=== PATIENT | female | born 1970 | race Caucasian/White ===

== ENCOUNTER 2018-01-14 09:00 | Outpatient (RCR) | payer BC, SELFPAY ==
--- NOTE | 2017-10-31 12:32 | HP.PTEVAL_ITS ---
Patient's Visit Information ALANIS LUCAS is a 47 year old F referred to Physical Therapy by Fredis Pandey with a diagnosis of RHEUMATOID ARTHRITIS WITHOUT RA FACTOR. Date of Evaluation: 10/31/17 Physical Therapist: Dg Hightower PT, - Visit Plan Frequency: 2x /Week Duration: 4 Weeks Plan: PRE'S QUADS/HAMS/HIP ,NUSTEP,CONDITIONING - Subjective Subjective: This 47 y/o female presents to physical therapy with rheumatoid arthritis since childhood. Patient was diagnosis with RA at 11 y/o's old. Patient current major c/o's is weakness in legs . Patient weakness is worse with stairs with one step at a time. Patient is unable to squat,kneeling, extended walking. Patient denies parathesia/tingling. Patient has fibromayalgia and c/o pain in knees.Patient pain affects sleeping. Weakness affects ablity to perform ADL'S ,housework tasks and quality of life.Patient has h/o anxiety and bipolar. SOCIAL: . VOCATION: retired disablity - Pain Bilateral Back Pain Intensity (Out of 10): 5 Pain Intensity Range: 10 - Objective POSTURE: mild foward posture,mild knee valgus ,pes planus has orthotics. GAIT: ambulates with reciprocal pattern. NEURO: inact ,denies parathesia/tingling,. PALAPTION: medial/lateral joint mild. AROM: hams min tight. MMT:quads 4-/5, hams 4/5,hip flexion 3+/5,ankle 4/5. PROPRIOCEPTION: impaired - Special Tests R Knee Valgus - MCL: Negative R Knee Varus - LCL: Negative R Knee Patellar Apprehension - PFS: Negative R Knee Patellar Grind - PFS: Negative L Knee Valgus - MCL: Negative L Knee Varus - LCL: Negative L Knee Patellar Apprehension - PFS: Negative L Knee Patellar Grind - PFS: Negative - Goals Goal 1:: Independant with HEP Goal Time Frame: 4-6 Weeks Goal 2:: Patient normalize gait pattern with min pain Goal Time Frame: 4-6 Weeks Goal 3:: Increase strength quads/hams/hip to 4/5 to improve function with ADL'S and stairs Goal Time Frame: 4-6 Weeks Goal 4:: Patient decrease pain knee by 50% or greater to improve function and walking/standing/stairs. Goal Time Frame: 4-6 Weeks Goal 5:: Patient be able to perform ADL'S and housework tasks ,stairs with min limiations Goal Time Frame: 4-6 Weeks - Rehabilitation Potential Physical Therapy Diagnosis: This patient has multiple comorbities along with RA with weakness ,pain in kness ,impairs ADL'S and housework tasks Rehabilitation Potential: Good - Anticipated Interventions Patient/Client Instruction: Educate patient on: Condition, Plan of Care For the Purpose of:: To decrease pain, To increase ROM, To improve muscle performance and motor function, To improve ability to perform ADL's, To increase tolerance to activity/condition/position, To improve ability of physical actions for home/community/work/leisure, To improve health of tissue, To decrease soft tissue restriction, To increase flexibility/ROM, To improve endurance, To improve ability to perform tasks related to life management Therapeutic Exercise to Include: Strength training, Endurance training, Flexibilty training, Active ROM Comment: PRE'S QUADS/HAMS/HIP For the Purpose of:: To decrease pain, To increase ROM, To improve muscle performance and motor function, To improve ability to perform ADL's, To increase tolerance to activity/condition/position, To improve ability of physical actions for home/community/work/leisure, To improve health of tissue, To decrease soft tissue restriction, To increase flexibility/ROM, To improve ability to perform tasks related to life management Thank you for the opportunity to evaluate your patient. For Medicare and Medicare HMO plans, please review the plan of care and approve it. It will need to be FAXED BACK to us at [phone] for Medicare purposes. Please let me know if there are questions or concerns regarding this plan of care. Physician Signature: Date:
--- NOTE | 2018-01-14 11:53 | HP.PTDCSUM ---
HP - PT D/C Summary It has been my pleasure to treat ALANIS LUCAS under orders from Fredis Pandey, for the diagnosis of RHEUMATOID ARTHRITIS WITHOUT RA FACTOR for a total of 6 visit(s). Discharge Date: 01/14/18 Please see the following information for a summary of their discharge status. - Subjective Subjective: Pt. reports being about 60% better overall. Pt. reports having increased pain the other night I think I over did it on the bike. Pt. reports being HEP compliant and has exercises for home, gym and aquatics. Pt. plans on being DC from PT at this point in time and trialing on own until following up with doctor about her back. - Pain Bilateral Back Pain Intensity (Out of 10): 4 bILATERAL KNEES Pain Intensity (Out of 10): 4 - Overall Improvement % Improvement: 60 - Objective Objective/Function: ROM- pt. has ROM with in normal limits of B knees. Pt. does have crepitus at ~30deg of knee flex/ext bilaterally. MMT- RLE- ankle 5/5 throughout; knee- ext 4+/5, flexion 4+/5; hip- flexion- 4+/5, abd 4/5, ext 4/5. LLE- ankle 5/5 throughout; knee- ext 4+/5, flexino 4/5; hip- flexion 4/5, abd 4/5, ext 4/5. gait: Pt. has increased genu varum in stance and gait. Pt. has decreased step length bilaterally and increased lateral hip sway during stance phase of gait. STAIRS: Pt. is able to negotiate with reciprocal pattern, but heavily uses HR to complete. Increased knee pain with doing so. - Goals Goal 1:: Independant with HEP (difficulty with balance exercises). Goal Progress: Goal Met Goal 2:: Patient normalize gait pattern with min pain Goal Progress: Progressing Goal 3:: Increase strength quads/hams/hip to 4/5 to improve function with ADL'S and stairs Goal Progress: Goal Met Goal 4:: Patient decrease pain knee by 50% or greater to improve function and walking/standing/stairs. Goal Progress: Progressing Goal 5:: Patient be able to perform ADL'S and housework tasks ,stairs with min limiations Goal Progress: Progressing - Plan Plan: PT. to be DC to HEP at this point in time and follow up with physician in 1 month to determine how to progress goind forward. - D/C Information Discharge Comments: Pt. was treated with BLE strengthening, particularlly her glute med, quads and HS. Pt. was given exercises to complete at home and in gym to assist with stabilizing her knees with functional mobility. She was also given some aquatic exercises as she plans on trialling this as well. Pt. will be DC to HEP at this point in time. If there are questions or concerns regarding this patient's physical therapy, please feel free to call me at [phone]. Thank you for the referral of this patient. Sincerely, Neeraj Caban
== END 2018-01-14 19:00 | disposition home or self-care (01) ==
LOC: PT 09:00
PROVIDERS: Family Provider Internal Medicine; PCP Internal Medicine; Visit Provider Internal Medicine Rheumatology
DX: M06.09 Rheumatoid arthritis without rheumatoid factor, multiple sites (principal)
CPT/HCPCS: 97110; 97162; 97530

== ENCOUNTER → 2019-06-19 12:28 | Outpatient (CLI) | payer BC, SELFPAY ==
--- NOTE | 2019-06-19 12:40 | BI_ITS ---
MAMMOGRAPHY - BILATERAL SCREENING REASON FOR EXAM: Female, 49 years old. Routine annual screening examination. PERTINENT HISTORY: Grandmother with breast cancer. TECHNIQUE: Digital bilateral breast shayna (3D mammographic acquisition) in the CC and MLO projections. 2-D mediolateral oblique (MLO) and craniocaudad (CC) views of both breasts were obtained. CAD: Full Field Digital Mammography with Computer Added Detection was performed. COMPARISON: Comparison is made with prior study dated January 14, 2018 and June 13, 2016. FINDINGS: Breast Composition: The breasts are heterogeneously dense, which may obscure small masses. There are no dominant masses or suspicious calcifications. No other significant abnormalities are identified. There has been no significant change since the prior study. BI/SCREEN MAMM (CAD) W/SHAYNA BILAT IMPRESSION: Stable bilateral screening mammogram. Yearly follow-up mammogram recommended. (A) ASSESSMENT CATEGORY: BIRADS Category 1: Negative. A letter regarding these results will be sent to the patient by the facility within 30 days. Approximately 10% of breast cancers are not detected by mammography. A normal mammogram should not delay biopsy of a clinically suspicious abnormality. [id number] Electronically Signed: Pascual Vaughn, at 14:31 EST , Service support ,
== END ==
PROVIDERS: Family Provider Internal Medicine; PCP Internal Medicine; Referring Provider Obstetrics & Gynecology Gynecology; Visit Provider Obstetrics & Gynecology Gynecology
DX: Z12.31 Encounter for screening mammogram for malignant neoplasm of breast (principal)
CPT/HCPCS: 77063; 77067

== ENCOUNTER 2020-03-18 08:24 | Outpatient (RCR) | payer SELFPAY ==
--- NOTE | 2020-03-25 11:21 | HP.FCE ---
Floor (Occasional 1-33% of Day): 15# Floor (Frequent 34-66% of Day): 8# Floor (Constant 67-100% of Day): NA Floor PDL: Sedentary-Light Knee (Occasional 1-33% of Day): 15# Knee (Frequent 34-66% of Day): 8# Knee (Constant 67-100% of Day): NA Knee PDL: Sedentary-Light Waist (Occasional 1-33% of Day): 15# Waist (Frequent 34-66% of Day): 8# Waist (Constant 67-100% of Day): NA Waist PDL: Sedentary-Light Shoulder (Occasional 1-33% of Day): 15# Shoulder (Frequent 34-66% of Day): 8# Shoulder (Constant 67-100% of Day): NA Shoulder PDL: Sedentary-Light Overhead (Occasional 1-33% of Day): NA Overhead (Frequent 34-66% of Day): NA Overhead (Constant 67-100% of Day): NA Overhead PDL: No Ability Comments: poor lifting mechanics with lift tasks from all levels Bending: Occasional Ability (1-33% of day) Comments: with use of external support Squatting: Occasional Ability (1-33% of day) Comments: low occasional ability with external support Kneeling: No Ablility (0% of day) Reaching out: Occasional Ability (1-33% of day) Reaching up: Occasional Ability (1-33% of day) Comments: low occasional ability Sitting: Frequent Ability (34-66% of day) Walking: Occasional Ability (1-33% of day) Standing: Occasional Ability (1-33% of day) Comments: low occasional ability Duration Sedentary Sedentary Light Light Light Medium Medium Medium Heavy Very Heavy Heavy Occasional (0-33% of day) Frequent (34-66% of day) Constant (67-100% of day) 10 # Negligible Negligible 15 # 8 # Negligible 20 # 10# Negli. 35 # 18 # 7 # 50 # 25 # 10 # 75 # 100 # >100 # 38 # 50 # >50 # 15 # 20 # >20 # Height: 1.68 m Weight:: 90.718 kg Hand Dominance: right Medical History Including Restrictions: pt states she feels more joints have become active with RA- pt has right hip and pain radiates through to her back and pelvis area. pt states bilateral ankles and knees cause pain. pt has pain in wrist/hand. Pt states she does see counseling one time a month to help with her depression and anxiety. pt states she has been through physical therapy in the past for knee pain and hip pain, with some relieve in pain. pt states she will be seeing physical therapy for her right shoulder and right hip in the future. pt sates her sleep is interrupted with pain. pt does not exercise on a regular basis. pt states she has no restrictions. metatraxaite. naproxin. Sulfasalazine. folic acid. limital. wellbutrin. cymbalta. lisinopril. hydrochlorothiazida. inhaler. gabapentin. clozapine Diagnoses: Major depressive disorder dx at age 23. Bipolar II disorder dx at age 28. Generalized anxiety disorder dx at age 28. RA w/o Rheu factor multiple sites Dx at age 12. Asthma. High blood pressure. wears glasses Symptoms: Pain in right hip. Pain in bialteral ankles. Pain in bilateral knees. pain in bilateral wrist. pain in hands. pain in right shoulder. pain in her neck. pain in her jaw Pain: Pt reports pain currently is 7/10 without taking her medication. Work History: Pt states she last worked in 2017. pt worked for the [employer]. 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 Pt states she was employed there for a little over 5 years. pt states she was no longer able to perform her job duties. 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 Behavioral: Pt demonstrate good cooperation and effort throughout the assessment. ADLS: Pt states she lives in a ranch with a basement. States there are two entry steps with one rail. lives with and stepson. Pt has a walk-in shower. pt states she is ind. with bathing and dressing. Pt states her does the cooking and cleaning. laundry is located on the first floor and pt states she can perform light laundry tasks. pt states her does the grocery shopping. Pt states her does work outside the home. Pt states she can do light cooking, no large meals. Pt states she drives ind. Physical Examination: pt demo with a standing posture of hip internal rotation knees close together and ankles inverted. shoulders rolled forward and neck forward ROM: pt demo with a standing posture of hip internal rotation knees close together and ankles inverted. shoulders rolled forward and neck forward. pt demo ROM WFL grossly throughout Strength: pt demo with bilateral shoulder MMT at 4-/5. biceps/triceps at 4/5. bilateral hip flex at 4-/5. hamstrings and quad 4+/5 Right Vice President Client Services Strength Average: 8.33 Right [employer] Strength Percentile: <.2% Left [employer] Strength Average: 10.00 Left [employer] Strength Percentile: <.2% Right Lateral Pinch Average: 6.00 Right Lateral Pinch Percentile: <10% Left Lateral Pinch Average: 4.00 Left Lateral Pinch Percentile: <10% Right Tripod Pinch Average: 4.00 Right Tripod Pinch Percentile: <10% Left Tripod Pinch Average: 4.00 Left Tripod Pinch Percentile: <10% Comments: pt demonstrates with weak assistant passenger locomotive engineer and pinch Sensation: sennes-lizzeth. monofilament testing. righ/left 2.83. bilateral hand sensation is within normal limits Fine Motor: Nine hole peg test. right 21.13 sec. = 25% limited. left 23.45 sec. = 50% average ability Balance: no loss of balance noted during assessment Bending: pt demo the ability to bend forward three times, ten times pt reports hip pain 7/10 and heart rate increase from 58 to 98. pt required external support while performing this task. pt can bend forward on an occasional ability Squatting: pt demo the ability to squat three times with limited ROM and reported bilateral knee pain 8/10. Pt demo a need for external support while performing this activity. pt can squat on a low occasional ability Kneeling: Crouching and kneeling. NA Reaching out/up: pt demo the ability to reach out/up three times and ten times pt demo the ability to reach out ten times rapidly unable to reach up ten times rapidly. pt reports right shoulder pain increased from 0/10 to 5/10 heart rate increased from 56 to 98. pt can reach out on a occasional ability and reach up on low occasional ability Walking: pt demo an antalgic knee knocking ambulation for 4 min. pt SOB heart rate increased from 58 to 99 pt reported right hip pain 8/10 left knee 8/10 Standing: pt demo the ability to stand for 2 min with shifting body weigth - pt can stand on a an low occasional ability Sitting: pt demo the ability to sit for 40 min with no apparent or expressed discomfort pt can sit on a frequent ability Climbing Stairs: pt demo the ability to ascend/desced 10 steps with use of one rail on right ascending and both hand rails with descending Floor Lift: pt demo the ability to lift 15# maximally from this level - poor lifting mechanics Knee Lift: pt demo the ability to lift 15# maximally from this level - poor lifting mechanics Waist Lift: pt demo the ability to lift 15# maximally from this level - poor lifting mechanics Shoulder Lift: pt demo the ability to lift 15# maximally from this level -poor lifting mechanics Overhead Lift: NA Carryin# for 8 feet pt did hold weight against her body Comments: pusing 15# at table top level for 12 with increase pain. Pt limited with pain and weakness to perform functional tasks
--- NOTE | 2020-03-25 11:21 | HP.OT.NRP ---
ALANIS LUCAS was seen in my office for initial evaluation on . The following Plan of Care was established for this patient: Plan: pt seen for FCE only This patient was last seen in our office . Pertinent comments regarding their Occupational therapy will appear below: At this point I will be discontinuing this patient from occupational therapy. I would be happy to see this patient again in the future if found appropriate by the physician. Thank you! Norma Chicas, OTR/L, CHT
== END 2020-03-18 19:00 | disposition home or self-care (01) ==
LOC: OT 08:24
PROVIDERS: PCP Internal Medicine; Referring Provider Internal Medicine Rheumatology; Visit Provider Internal Medicine Rheumatology
DX: M08.00 Unspecified juvenile rheumatoid arthritis of unspecified site (principal); M06.9 Rheumatoid arthritis, unspecified
CPT/HCPCS: 97750

== ENCOUNTER → 2020-05-27 11:25 | Outpatient (CLI) | payer BC, SELFPAY | PROVIDERS: PCP Internal Medicine; Referring Provider Internal Medicine Pulmonary Disease; Visit Provider Internal Medicine Pulmonary Disease | DX: Z20.828 Contact with and (suspected) exposure to other viral communicable diseases (principal); R05 Cough | CPT/HCPCS: 87635; C9803; U0003 ==

== ENCOUNTER → 2020-06-21 07:19 | Outpatient (CLI) | payer BC, SELFPAY ==
--- NOTE | 2020-06-21 07:21 | BI_ITS ---
MAMMOGRAPHY - BILATERAL SCREENING REASON FOR EXAM: Female, 50 years old. Routine annual screening examination. PERTINENT HISTORY: Grandmother with breast cancer. Remote left excisional breast biopsy. TECHNIQUE: Digital bilateral breast shayna (3D mammographic acquisition) in the CC and MLO projections. 2-D mediolateral oblique (MLO) and craniocaudad (CC) views of both breasts were obtained. CAD: Full Field Digital Mammography with Computer Added Detection was performed. COMPARISON: Comparison is made with prior study dated 06/19/2019 and 07/17/2017. FINDINGS: Breast Composition: The breasts are heterogeneously dense, which may obscure small masses. There are no dominant masses or suspicious calcifications. No other significant abnormalities are identified. There has been no significant change since the prior study. BI/SCREEN MAMM (CAD) W/SHAYNA BILAT IMPRESSION: Stable bilateral screening mammogram. Yearly follow-up mammogram recommended. (A) ASSESSMENT CATEGORY: BIRADS Category 1: Negative. A letter regarding these results will be sent to the patient by the facility within 30 days. Approximately 10% of breast cancers are not detected by mammography. A normal mammogram should not delay biopsy of a clinically suspicious abnormality. [id number] Electronically Signed: Pascual Vaughn, at 8:27 EST , Service support ,
== END ==
PROVIDERS: PCP Internal Medicine; Referring Provider Obstetrics & Gynecology Gynecology; Visit Provider Obstetrics & Gynecology Gynecology
DX: Z12.31 Encounter for screening mammogram for malignant neoplasm of breast (principal)
CPT/HCPCS: 77063; 77067

== ENCOUNTER 2020-08-26 08:00 | Outpatient (RCR) | payer BC, SELFPAY ==
--- NOTE | 2020-05-10 13:17 | HP.PTEVAL ---
Patient's Visit Information ALANIS LUCAS is a 50 year old F referred to Physical Therapy by Dr. Fredis Pandey DO with a diagnosis of RIGHT HIP AND SHOULDER PAIN. Date of Evaluation: 05/09/20 Physical Therapist: Charline Cruz PT, Cert MDT - Visit Plan Frequency: 2-3x /Week Duration: 2 Months Plan: AQUATIC THERAPY FOR RIGHT SHLD AND RIGHT HIP PAIN REDUCTION, POSTURE CORRECTION/STRENGTHENING, INSTRUCTION IN APPROPRIATE BODY MECHANICS AND ACTIVITY MODIFICATIONS. DLS STARTING WITH A NEUTRAL SPINE PROGRESSING ROM TOLERATED. THANG UE AND LE ROM, STRETCHING AND STRENGTHENING. HEP INSTRUCTION. - Subjective Present symptoms: RIGHT HIP AND RIGHT SHOULDER PAIN. ALSO HAS MULTIPLE OTHER JOINT PAIN INCLUDING SPINE PAIN. PATIENT DENIES THANG UE AND LE NUMBNESS AND TINGLING. Present since: RIGHT HIP - ABOUT A YEAR AGO. RIGHT SHLD - ABOUT 6 MONTHS AGO. Pain Scale: RIGHT SHLD: Worst - 7/10 Least - 3/10, RIGHT HIP: WORST - 8/10, LEAST 4/10. Commenced as a result of: NO APPARENT REASON. Symptoms at onset: LOW BACK. Worse: REACHING, PUSHING, SLEEPING ON RIGHT SIDE, ROLLING OVER IN BED, WALKING, RISING FROM SITTING, GETTING IN/OUT OF CAR, SIDE STEPPING, TWISTING IN BED, RISING FROM LYING. SITTING WITHOUT BACK SUPPORT AND LEGS DANGLING. Better: RESTING ARM, CHANGE OF POSITION OF ARM, CHANGE OF POSITION FOR HIP, SOMETIMES WALKING A FEW STEPS, LYING DOWN. Previous history/Previous treatment: PATIENT REPORTS SHE CAME TO PT HERE FOR HER LOW BACK ABOUT A YEAR AGO BUT THE PT THOUGHT IT WAS HER HIP. Dizziness: NO. Tinnitis: NO. Nausea: NO. Shortness of Breath: NO. Difficulty Swollowing: NO. Coughing/sneezing/straining: NEGATIVE. Gait: INDEP BUT ANTALGIC. Difficulty initiating urinatin: NO. Gait: NO AD'S. Unexplained weight loss: NO. Imaging: NONE RECENT OF RIGHT SHLD OR HIP. DID HAVE NECK X-RAY RECENTLY AND THERE ARE SOME BONE SPURS AND NARROWING. History from recent FCE here at [facility]: pt states she feels more joints have become active with RA- pt has right hip and pain radiates through to her back and pelvis area. pt states bilateral ankles and knees cause pain. pt has pain in wrist/hand. Pt states she does see counseling one time a month to help with her depression and anxiety. pt states she has been through physical therapy in the past for knee pain and hip pain, with some relieve in pain. pt states she will be seeing physical therapy for her right shoulder and right hip in the future. pt sates her sleep is interrupted with pain. pt does not exercise on a regular basis. pt states she has no restrictions. Medications: metatraxaite. naproxin. Sulfasalazine. folic acid. limital. wellbutrin. cymbalta. lisinopril. hydrochlorothiazida. inhaler. gabapentin. clozapine. PMH: Major depressive disorder dx at age 23. Bipolar II disorder dx at age 28. Generalized anxiety disorder dx at age 28. RA w/o Rheu factor multiple sites Dx at age 12. Asthma. High blood pressure. Fibromyalgia. wears glasses. Symptoms reported at E: Pain in right hip. Pain in bialteral ankles. Pain in bilateral knees. pain in bilateral wrist. pain in hands. pain in right shoulder. pain in her neck. pain in her jaw. Employment History: Pt states she last worked in 2017. pt worked for the [employer]. 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 Pt states she was employed there for a little over 5 years. pt states she was no longer able to perform her job duties. 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 ADL's: Pt states she lives in a ranch with a basement. States there are two entry steps with one rail. lives with and stepson. Pt has a walk-in shower. pt states she is ind. with bathing and dressing. Pt states her does the cooking and cleaning. laundry is located on the first floor and pt states she can perform light laundry tasks. pt states her does the grocery shopping. Pt states her does work outside the home. Pt states she can do light cooking, no large meals. Pt states she drives ind. - Objective Sitting Posture/Standing Posture: FORWARD HEAD. ROUNDED SHOULDERS. NO TORTICOLLIS. INCREASED KYPHOSIS. THANG GENU VALGUS. Active Correction of posture: NE. Other Observations: INDEP ANTALGIC GAIT AND TRANSFERS. Motor deficit: THANG UE'S AND LE'S GROSSLY 4/5 WITH MMT'ING. Sensory deficit: THANG UE AND LE LIGHT TOUCH SENSATION APPEARS INTACT AND SYMMETRIAL. FEET NT. ROM deficit: THANG UE'S AND LE'S WFL. Reflexes: NT. Dural Signs: UE'S -NEGATIVE , LE'S - NEGATIVE. Lumbar mvmt loss: flex - MIN. ext - MOD - INCREASES LBP. R SG - MOD - INCRASES LBP. L SG - MOD - INCREASES LBP. PALPATION: VERY TIGHT THANG CERVICAL MUSCULATURE AND TENDERNESS OF CERVICAL SPINE REGIONS. Core strength: POOR. Cervical Mvmt Loss: Flex: NIL. Pro: NIL. Ext: MOD TO RENO. Ret: RENO. RSB: MOD. LSB: MOD - BRIEF RIGHT EAR RINGING. R Rot: MOD TO RENO. L Rot: MOD TO RENO. PATIENT C/O INCREASED NECK PAIN WITH CERVICAL ROM TESTING ALL PLANES. Postural strength: POOR - Goals Goal 1:: DECREASE C/O RIGHT SHOULDER AND HIP PAIN Goal Time Frame: 4-6 Weeks Goal 2:: IMPROVE REACHING, PUSHING, SLEEPING ON RIGHT SIDE, ROLLING OVER IN BED, WALKING, RISING FROM SITTING, GETTING IN/OUT OF CAR, SIDE STEPPING AND RISING FROM LYING FUNCTION Goal Time Frame: 4-6 Weeks Goal 3:: PATIENT WILL BE INDEP WITH A LAND AND/OR WATER EX PROGRAMS FOR CONTINUED IMPROVEMENT ONCE FORMAL PHYSICAL THERPAY CONCLUDES. - Anticipated Interventions Patient/Client Instruction: Educate patient on: Condition, Plan of Care, Risk Factors, Benefits of Fitness Program For the Purpose of:: To improve self management Therapeutic Exercise to Include: Strength training, Body mechanics, Postural training, Flexibilty training, Gait and locomotor training, Neuromotor development, In an aquatic setting, Dynamic Lumbar Stabilization, Scapular Strength/Stabilization For the Purpose of:: To decrease pain, To increase ROM, To improve muscle performance and motor function, To increase tolerance to activity/condition/position, To improve ability of physical actions for home/community/work/leisure, To improve gait and locomotor functions Thank you for the opportunity to evaluate your patient. For Medicare and Medicare HMO plans, please review the plan of care and approve it. It will need to be FAXED BACK to us at [phone] for Medicare purposes. For Medicare only, by signing this I certify the plan of care. Please let me know if there are questions or concerns regarding this plan of care. Physician Signature: Date:
--- NOTE | 2020-06-30 12:35 | HP.PTREVAL ---
Dr. Fredis Pandey, DO, It has been my pleasure to treat ALANIS LUCAS over the last 9 visits for RIGHT HIP AND SHOULDER PAIN. Please see the progress note below for an update on the physical therapy plan of care! Subjective: PATIENT REPORTS THAT WHEN SHE WALKS WRONG IT HURTS MORE. LEARNING TO WALK RIGHT HAS HELPED. PATIENT REPORTS HER HIP HAS IMPROVED WITH WALKING. MY R SHLD HAS IMPROVED IN TERMS OF NOT FEELING LIKE IT IS GOING TO DISLOCATE MUCH. THE GROIN PAIN HAS IMPROVED NOW TOO AND COMES AND GOES. PATIENT REPORTS EVERYTHING HAS IMPROVED BUT ITS NOT GREAT YET. INCRASED PAIN WITH LUNGES YESTERDAY. Objective/Function: PATIENT WAS SEEN TODAY FOR RE-ASSESSMENT OF PROGRESS TOWARD THE SET PT GOALS AND THE NEED FOR FURTHER PHYSICAL THERAPY VS READINESS FOR DISCHARGE. PATIENT IS A GOOD CANDIDATE TO CONTINUE AQUATIC THERAPY BASED ON PROGRESS MADE AND ROOM FOR FURTHER IMPROVEMENT. PATIENT IS AGREEABLE. UPON EXAM TODAY: THANG UE AND LE STRENGTH GROSSLY 4/5 WITH MMT'ING. POOR CORE STRENGTH. Lumbar mvmt loss: flex - MIN. ext - MOD - INCREASES LBP. R SG - MIN - INCRASES LBP. L SG - MIN - INCREASES LBP. Core strength: POOR. Cervical Mvmt Loss: Flex: NIL. Pro: NIL. Ext: MOD TO RENO. Ret: RENO. RSB: MOD. LSB: MOD - BRIEF RIGHT EAR RINGING. R Rot: MOD TO RENO. L Rot: MOD TO RENO. PATIENT C/O INCREASED NECK PAIN WITH CERVICAL ROM TESTING ALL PLANES. Postural strength: POOR Plan Plan: RECOMMEND CONTINUED AQUATIC THERPAY 2X'S A WEEK X 5 WEEKS WORKING TOWARD SAME GOALS. PATIENT AGREEABLE. Goals Goal 1:: DECREASE C/O RIGHT SHOULDER AND HIP PAIN Goal Time Frame: 4-6 Weeks Goal Progress: Progressing Goal 2:: IMPROVE REACHING, PUSHING, SLEEPING ON RIGHT SIDE, ROLLING OVER IN BED, WALKING, RISING FROM SITTING, GETTING IN/OUT OF CAR, SIDE STEPPING AND RISING FROM LYING FUNCTION Goal Time Frame: 4-6 Weeks Goal Progress: Progressing Goal 3:: PATIENT WILL BE INDEP WITH A LAND AND/OR WATER EX PROGRAMS FOR CONTINUED IMPROVEMENT ONCE FORMAL PHYSICAL THERPAY CONCLUDES. Goal Time Frame: 4-6 Weeks Goal Progress: Progressing Anticipated Interventions Patient/Client Instruction: Educate patient on: Condition, Plan of Care, Risk Factors, Benefits of Fitness Program For the Purpose of:: To improve self management Therapeutic Exercise to Include: Strength training, Body mechanics, Postural training, Flexibilty training, Gait and locomotor training, Neuromotor development, In an aquatic setting, Dynamic Lumbar Stabilization, Scapular Strength/Stabilization For the Purpose of:: To decrease pain, To increase ROM, To improve muscle performance and motor function, To increase tolerance to activity/condition/position, To improve ability of physical actions for home/community/work/leisure, To improve gait and locomotor functions Please do not hesitate to contact me at [phone] by phone or if you have questions or concerns regarding this new plan of care! Sincerely, Charline Cruz, PT, Cert MDT
--- NOTE | 2020-08-26 11:43 | HP.PTDCSUM ---
It has been my pleasure to treat ALANIS LUCAS referred by Dr. Fredis Pandey DO, with the diagnosis of RIGHT HIP AND SHOULDER PAIN for a total of 16 visit(s). Discharge Date: Please see the following information for a summary of their discharge status. Subjective: PATIENT REPORTS APPROX 60% IMPROVEMENT OVER-ALL TOWARD HER PT GOALS SINCE STARTING THERAPY. SHE REPORTS SHE PLANS TO JOIN OUR [employer] MEMBERSHIP TO CONTINUE INDEP WATER EX. HER RIGHT KNEE IS STILL SORE SINCE SLIPPING ON THE ICE. THIS PT RECOMMENDS PHYSICIAN ASSESSMENT OF KNEE AND PATIENT AGREEABLE. Lumbar Spine Pain Intensity (Out of 10): 6 RLE Pain Intensity (Out of 10): 3 RUE Pain Intensity (Out of 10): 5 % Improvement: 60 Objective/Function: PATIENT WAS SEEN TODAY FOR RE-ASSESSMENT OF PROGRESS TOWARD THE SET PT GOALS AND THE NEED FOR FURTHER PHYSICAL THERAPY VS READINESS FOR DISCHARGE. PATIENT IS A GOOD CANDIDATE TO CONTINUE AQUATIC THERAPY INDEP'LY AT THIS POINT BASED ON PROGRESS MADE AND LEVEL OF CHALLENGE PROVIDED BY CURRENT PROGRAM. PATIENT IS AGREEABLE. UPON EXAM TODAY: THANG UE AND LE STRENGTH GROSSLY 4/5 WITH MMT'ING. POOR CORE STRENGTH. Lumbar mvmt loss: flex - MIN. ext - MOD - INCREASES LBP. R SG - MOD - INCRASES LBP. L SG - MIN - INCREASES LBP. Cervical Mvmt Loss: Flex: NIL. Pro: NIL. Ext: MOD TO RENO. Ret: RENO. RSB: MOD. LSB: MOD - STILL GETS BRIEF RIGHT EAR RINGING. R Rot: MOD TO RENO. L Rot: MOD TO RENO. PATIENT C/O INCREASED NECK PAIN WITH CERVICAL ROM TESTING ALL PLANES. Postural strength: POOR. ALSO DISCUSSED LEG LENGTH DISCREPENCY WITH PATIENT AND SHE HAS HAD A SHOE LIFT IN THE PAST THAT INCRASED HER PAIN. RECOMMENDED PODIATRY OR ORTHO FOLLOW UP FOR MORE DETAILED ASSESSMENT. Goal 1:: DECREASE C/O RIGHT SHOULDER AND HIP PAIN Goal Progress: Progressing Goal 2:: IMPROVE REACHING, PUSHING, SLEEPING ON RIGHT SIDE, ROLLING OVER IN BED, WALKING, RISING FROM SITTING, GETTING IN/OUT OF CAR, SIDE STEPPING AND RISING FROM LYING FUNCTION Goal Progress: Progressing Goal 3:: PATIENT WILL BE INDEP WITH A LAND AND/OR WATER EX PROGRAMS FOR CONTINUED IMPROVEMENT ONCE FORMAL PHYSICAL THERPAY CONCLUDES. Goal Progress: Progressing Plan: D/C TO INDEP POOL PROGRAM AND FOLLOW UP WITH PHYSICIANS NEEDED FOR R SHLD AND HIP PAIN THAT SHE WAS REFERRED TO PT FOR IN ADDITION TO RIGHT KNEE NEEDED. If there are questions or concerns regarding this patient's physical therapy, please feel free to call me at [phone]. Thank you for the referral of this patient. Sincerely, Charline Cruz, PT, Cert MDT
--- NOTE | 2020-08-26 11:46 | HP.PTDCSUM_ITS ---
It has been my pleasure to treat ALANIS LUCAS referred by Dr. Fredis Pandey DO, with the diagnosis of RIGHT HIP AND SHOULDER PAIN for a total of 16 visit(s). Discharge Date: Please see the following information for a summary of their discharge status. Subjective: PATIENT REPORTS APPROX 60% IMPROVEMENT OVER-ALL TOWARD HER PT GOALS SINCE STARTING THERAPY. SHE REPORTS SHE PLANS TO JOIN OUR [employer] MEMBERSHIP TO CONTINUE INDEP WATER EX. HER RIGHT KNEE IS STILL SORE SINCE SLIPPING ON THE ICE. THIS PT RECOMMENDS PHYSICIAN ASSESSMENT OF KNEE AND PATIENT AGREEABLE. Lumbar Spine Pain Intensity (Out of 10): 6 RLE Pain Intensity (Out of 10): 3 RUE Pain Intensity (Out of 10): 5 % Improvement: 60 Objective/Function: PATIENT WAS SEEN TODAY FOR RE-ASSESSMENT OF PROGRESS TOWARD THE SET PT GOALS AND THE NEED FOR FURTHER PHYSICAL THERAPY VS READINESS FOR DISCHARGE. PATIENT IS A GOOD CANDIDATE TO CONTINUE AQUATIC THERAPY INDEP'LY AT THIS POINT BASED ON PROGRESS MADE AND LEVEL OF CHALLENGE PROVIDED BY CURRENT PROGRAM. PATIENT IS AGREEABLE. UPON EXAM TODAY: THANG UE AND LE STRENGTH GROSSLY 4/5 WITH MMT'ING. POOR CORE STRENGTH. Lumbar mvmt loss: flex - MIN. ext - MOD - INCREASES LBP. R SG - MOD - INCRASES LBP. L SG - MIN - INCREASES LBP. Cervical Mvmt Loss: Flex: NIL. Pro: NIL. Ext: MOD TO RENO. Ret: RENO. RSB: MOD. LSB: MOD - STILL GETS BRIEF RIGHT EAR RINGING. R Rot: MOD TO RENO. L Rot: MOD TO RENO. PATIENT C/O INCREASED NECK PAIN WITH CERVICAL ROM TESTING ALL PLANES. Postural strength: POOR. ALSO DISCUSSED LEG LENGTH DISCREPENCY WITH PATIENT AND SHE HAS HAD A SHOE LIFT IN THE PAST THAT INCRASED HER PAIN. RECOMMENDED PODIATRY OR ORTHO FOLLOW UP FOR MORE DETAILED ASSESSMENT. PATIENT PRESENTS WITH MODERATE RIGHT KNEE SWELLING AND PAIN TODAY. RIGHT KNEE ROM IN SUPINE = -3 DEG EXT TO 120 DEG FLEX. Goal 1:: DECREASE C/O RIGHT SHOULDER AND HIP PAIN Goal Progress: Progressing Goal 2:: IMPROVE REACHING, PUSHING, SLEEPING ON RIGHT SIDE, ROLLING OVER IN BED, WALKING, RISING FROM SITTING, GETTING IN/OUT OF CAR, SIDE STEPPING AND RISING FROM LYING FUNCTION Goal Progress: Progressing Goal 3:: PATIENT WILL BE INDEP WITH A LAND AND/OR WATER EX PROGRAMS FOR CONTINUED IMPROVEMENT ONCE FORMAL PHYSICAL THERPAY CONCLUDES. Goal Progress: Progressing Plan: D/C TO INDEP POOL PROGRAM AND FOLLOW UP WITH PHYSICIANS NEEDED FOR R SHLD AND HIP PAIN THAT SHE WAS REFERRED TO PT FOR IN ADDITION TO RIGHT KNEE NEEDED. If there are questions or concerns regarding this patient's physical therapy, please feel free to call me at [phone]. Thank you for the referral of this patient. Sincerely, Charline Cruz, PT, Cert MDT
== END 2020-08-26 12:25 | disposition home or self-care (01) ==
LOC: PT 08:00
PROVIDERS: PCP Internal Medicine; Referring Provider Internal Medicine Rheumatology; Visit Provider Internal Medicine Rheumatology
DX: M25.551 Pain in right hip (principal); M75.101 Unspecified rotator cuff tear or rupture of right shoulder, not specified as traumatic
CPT/HCPCS: 97113; 97162; 97164

== ENCOUNTER 2021-02-07 10:00 | Outpatient (RCR) | payer BC, SELFPAY ==
--- NOTE | 2021-01-18 14:48 | HP.PTEVAL ---
Patient's Visit Information ALANIS LUCAS is a 50 year old F referred to Physical Therapy by Dr. Ximena Israel DPM with a diagnosis of ANKLE SPRAIN, SINUS TARSITIS, RA AND FIBRO. Date of Evaluation: 01/18/21 Physical Therapist: Charline Cruz, PT, Cert MDT - Visit Plan Frequency: 2-3x /Week Duration: 4-6 Weeks Plan: Start very slowly with aquatic therapy in deep water and progressing to land pt as tolerated for pain relief,. Joint mobilisation exercises as needed. R LE ROM, stretching and strengthening ex's. Balance Training and proprioceptive training. Bio-mechanical correction. HEP inst. - Subjective Work/Leisure: RETIRED. Present symptoms: PAIN IN THE WHOLE ANKLE. Present since: OCTOBER 2021. Pain Scale: WORST 6/10, LEAST 2/10. Currently: 210. Commenced as a result of: STEPPED ON A CRACK OR OFF A CURB AND PATIALLY TURNED ANKLE AND THE NEXT DAY SHOOTING PAINS IN THE FRONT OF ANKLE FOR ABOUT A WEEK. WENT TO THE DOCTOR AND GOT X-RAYS. POSSIBLE HAIR LINE FRACTURE OR BONE BRUISE. TRIED A BETTER BRACE BUT STILL HURT. ABOUT A MONTH LATER THE DOCTOR BUT HER IN A WALKING BOOT. STATES HER BACK HAS FLARED UP SINCE AND WANTS TO GET BACK IN THE WATER FOR THERAPY FOR HER FOOT IF POSSIBLE BECAUSE IT HELPS HER BACK TOO. Worse: WALKING ON HARD FLOOR WITHOUT BOOT. CAN WALK ON CARPET WITHOUT ANY INCREASED PAIN. Better: IN THE BOOT, LYING DOWN. Disturbed sleep: YES. OTHER: PATIENT REPORTS SHE HAS HAD A BROKEN FOOT IN THE PAST BUT SHE ISN'T SURE WHICH ONE. PATIENT FELL OUT OF BED 01/13/21 - WAS SLEEPING AND ROLLED OUT OF BED AND HIT FACE - HAS SEEN A DOCTOR. INFORMATION FROM MAY 2020 PT EVAL: Present symptoms: RIGHT HIP AND RIGHT SHOULDER PAIN. ALSO HAS MULTIPLE OTHER JOINT PAIN INCLUDING SPINE PAIN. PATIENT DENIES THANG UE AND LE NUMBNESS AND TINGLING. Present since: RIGHT HIP - ABOUT A YEAR AGO. RIGHT SHLD - ABOUT 6 MONTHS AGO. Pain Scale: RIGHT SHLD: Worst - 7/10 Least - 3/10, RIGHT HIP: WORST - 8/10, LEAST 4/10. Commenced as a result of: NO APPARENT REASON. Symptoms at onset: LOW BACK. Worse: REACHING, PUSHING, SLEEPING ON RIGHT SIDE, ROLLING OVER IN BED, WALKING, RISING FROM SITTING, GETTING IN/OUT OF CAR, SIDE STEPPING, TWISTING IN BED, RISING FROM LYING. SITTING WITHOUT BACK SUPPORT AND LEGS DANGLING. Better: RESTING ARM, CHANGE OF POSITION OF ARM, CHANGE OF POSITION FOR HIP, SOMETIMES WALKING A FEW STEPS, LYING DOWN. Previous history/Previous treatment: PATIENT REPORTS SHE CAME TO PT HERE FOR HER LOW BACK ABOUT A YEAR AGO BUT THE PT THOUGHT IT WAS HER HIP. Dizziness: NO. Tinnitis: NO. Nausea: NO. Shortness of Breath: NO. Difficulty Swollowing: NO. Coughing/sneezing/straining: NEGATIVE. Gait: INDEP BUT ANTALGIC. Difficulty initiating urinatin: NO. Gait: NO AD'S. Unexplained weight loss: NO. Imaging: NONE RECENT OF RIGHT SHLD OR HIP. DID HAVE NECK X-RAY RECENTLY AND THERE ARE SOME BONE SPURS AND NARROWING. History from recent FCE here at [facility]: pt states she feels more joints have become active with RA- pt has right hip and pain radiates through to her back and pelvis area. pt states bilateral ankles and knees cause pain. pt has pain in wrist/hand. Pt states she does see counseling one time a month to help with her depression and anxiety. pt states she has been through physical therapy in the past for knee pain and hip pain, with some relieve in pain. pt states she will be seeing physical therapy for her right shoulder and right hip in the future. pt sates her sleep is interrupted with pain. pt does not exercise on a regular basis. pt states she has no restrictions. Medications: metatraxaite. naproxin. Sulfasalazine. folic acid. limital. wellbutrin. cymbalta. lisinopril. hydrochlorothiazida. inhaler. gabapentin. clozapine. PMH: Major depressive disorder dx at age 23. Bipolar II disorder dx at age 28. Generalized anxiety disorder dx at age 28. RA w/o Rheu factor multiple sites Dx at age 12. Asthma. High blood pressure. Fibromyalgia. wears glasses. Symptoms reported at FCE: Pain in right hip. Pain in bialteral ankles. Pain in bilateral knees. pain in bilateral wrist. pain in hands. pain in right shoulder. pain in her neck. pain in her jaw. Employment History: Pt states she last worked in 2016. pt worked for the [employer]. 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 Pt states she was employed there for a little over 5 years. pt states she was no longer able to perform her job duties. 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 ADL's: Pt states she lives in a ranch with a basement. States there are two entry steps with one rail. lives with and stepson. Pt has a walk-in shower. pt states she is ind. with bathing and dressing. Pt states her does the cooking and cleaning. laundry is located on the first floor and pt states she can perform light laundry tasks. pt states her does the grocery shopping. Pt states her does work outside the home. Pt states she can do light cooking, no large meals. Pt states she drives ind. - Objective THIS PATIENT AMBULATES INDEP'LY INTO PT WEARING A WALKING BUT ON THE LEFT FOOT AND NO USING ANY ASSISTIVE DEVICES. NO LOB. SHE DEMO'S INDEP GAIT IN TREATMENT ROOM ON CARPET WITHOUT BOOT WITH FULL WEIGHT BEARING BUT DECREASED HEEL STRIKE AND TOE OFF PHASES OF GAIT. SHE DOES NOT HAVE SWELLING OF THE LEFT FOOT OR ANKLE BUT SHE IS TENDER WITH LIGHT PALPATION OF THE LEFT ANTERIOR ANKLE AND LEFT LATERAL ANKLE. SHE HAS GOOD ANKLE, FOOT AND TOE JOINT MOBILITY. ANKLE ROM IS WFL BUT PLANTAR FLEXION TESTING PROVOKES INCREASED PAIN. SHE WOULD LIKE TO START IN THE POOL AND THIS PT IS AGREEABLE WITH VERY SLOW START AND PROGRESSION. PATIENT IS FAMILAR WITH AQUATIC THERAPY FROM PAST THERAPY FOR HER RA AND FIBROMYALGIA. - Goals Goal 1:: DECREASE C/O LEFT ANKLE PAIN Goal Time Frame: 4-6 Weeks Goal 2:: INDEP SAFE GAIT ON LEVEL SURFACES AND UP AND DOWN STEPS WITHOUT AD FULL WEIGHT BEARING IN NORMAL SHOE TO ALLOW FOR RETURN TO PRIOR LEVEL OF FUNCTION. Goal Time Frame: 4-6 Weeks Goal 3:: PATIENT WILL BE INDEP WITH LAND AND WATER EX PROGRAMS FOR CONTINUED IMPROVEMENT ONCE FORMAL PHYSICAL THERPAY CONCLUDES. Goal Time Frame: 4-6 Weeks - Anticipated Interventions Patient/Client Instruction: Educate patient on: Condition, Plan of Care, Risk Factors For the Purpose of:: To improve self management Therapeutic Exercise to Include: Strength training, Balance training, Flexibilty training, Gait and locomotor training, Neuromotor development, In an aquatic setting Comment: LE ROM, STRETCHING AND STENGTHENING. OK TO INCLUDE CORE BASED ON PRIOR PT AND DESIRED BY PATIENT. For the Purpose of:: To decrease pain, To improve muscle performance and motor function, To increase tolerance to activity/condition/position, To improve ability of physical actions for home/community/work/leisure, To improve gait and locomotor functions TENS: Yes IF ES: Yes Other electric stimulation: Yes Cryotherapy (ice pack, ice massage): Yes Thermo therapy (hot pack): Yes Ultrasound (thermal/non thermal): Yes For the Purpose of:: To decrease pain, To decrease swelling/inflammation, To improve nutrient delivery to tissue Thank you for the opportunity to evaluate your patient. For Medicare and Medicare HMO plans, please review the plan of care and approve it. It will need to be FAXED BACK to us at [phone] for Medicare purposes. For Medicare only, by signing this I certify the plan of care. Please let me know if there are questions or concerns regarding this plan of care. Physician Signature: Date:
--- NOTE | 2021-03-16 09:59 | HP.PTDCSUM ---
It has been my pleasure to treat ALANIS LUCAS referred by Dr. Ximena Israel DPM, with the diagnosis of ANKLE SPRAIN, SINUS TARSITIS, RA AND FIBRO for a total of 5 visit(s). Discharge Date: 03/16/21 Please see the following information for a summary of their discharge status. Subjective: THIS PATIENT PRESENTS TO PT REPORTING HER FOOT IS DOING FINE NOW. SHE IS OUT OF THE BOOT AND DOES NOT WANT TO CONTINUE PT. LLE Pain Intensity (Out of 10): 2 Lumbar Spine Pain Intensity (Out of 10): 3 Objective/Function: PATIENT REPORTS SHE WILL FOLLOW UP WITH HER DOCTOR NEEDED. Goal 1:: DECREASE C/O LEFT ANKLE PAIN Goal Progress: Goal Met Goal 2:: INDEP SAFE GAIT ON LEVEL SURFACES AND UP AND DOWN STEPS WITHOUT AD FULL WEIGHT BEARING IN NORMAL SHOE TO ALLOW FOR RETURN TO PRIOR LEVEL OF FUNCTION. Goal Progress: Goal Met Goal 3:: PATIENT WILL BE INDEP WITH LAND AND WATER EX PROGRAMS FOR CONTINUED IMPROVEMENT ONCE FORMAL PHYSICAL THERPAY CONCLUDES. Goal Progress: Goal Met Plan: D/C If there are questions or concerns regarding this patient's physical therapy, please feel free to call me at [phone]. Thank you for the referral of this patient. Sincerely, Charline Cruz, PT, Cert MDT Balance/Gait/Functional tests - Balance/Special Test Scores Lower Extremity Functional Score: 16
== END 2021-02-07 19:00 | disposition home or self-care (01) ==
LOC: PT 10:00
PROVIDERS: PCP Internal Medicine; Referring Provider Podiatrist; Visit Provider Podiatrist
DX: S93.402D Sprain of unspecified ligament of left ankle, subsequent encounter (principal); X58.XXXD Exposure to other specified factors, subsequent encounter; M06.9 Rheumatoid arthritis, unspecified; M79.7 Fibromyalgia
CPT/HCPCS: 97113; 97162

== ENCOUNTER → 2021-06-13 11:02 | Outpatient (CLI) | payer BC, SELFPAY ==
--- NOTE | 2021-06-13 11:05 | RAD_ITS ---
STUDY: X-RAY - RIGHT FOOT CLINICAL: Female, 51 years old. Hallux valgus deformity. TECHNIQUE: 4 weight bearing view(s) of the foot. COMPARISON: None. FINDINGS: Osteopenia. Small inferior Calcaneal spur. Moderate arthrosis of the tibiotalar and subtalar joints. Mild arthrosis of the midfoot. Moderate arthrosis of the MTP and IP joints with hammertoe deformities. Healing oblique fracture of the base of the proximal phalanx of the first toe. The soft tissue structures are unremarkable. RAD/Foot min 3 Views IMPRESSION: Osteopenia with diffuse osteoarthritic changes. Healing fracture of the base of the proximal phalanx of the first toe. Electronically Signed: Americo Florentino MD at 11:46 EST , Service support ,
== END ==
PROVIDERS: PCP Internal Medicine; Referring Provider Podiatrist; Visit Provider Podiatrist
DX: S92.414D Nondisplaced fracture of proximal phalanx of right great toe, subsequent encounter for fracture with routine healing (principal)
CPT/HCPCS: 73630

== ENCOUNTER 2021-12-14 09:00 | Outpatient (RCR) | payer OTHER, SELFPAY ==
--- NOTE | 2021-12-05 14:10 | HP.PTEVAL_ITS ---
Patient's Visit Information ALANIS LUCAS is a 51 year old F referred to Physical Therapy by Dr. Ximena Israel DPM with a diagnosis of ANKLE SPRAIN. Date of Evaluation: 11/09/21 Physical Therapist: Charline Cruz, PT, Cert MDT - Visit Plan Frequency: 2-3x /Week Duration: 6-8 WKS Plan: *f/u with new HEP tasks. *Add lateral amb, tandem amb, monster steps, and rest of DLP tasks next - Subjective THIS PATIENT PRESENTS TO PT REPORTING THAT SHE FX'D HER R BIG TOE FALLING DOWN STEPS 03/21 AND WAS IN A CAM BOOT UNTIL JUL 2021. SHE ALSO REPORTS SHE STARTED AQUATIC THERAPY FOR HER L ANKLE SPRAIN IN OCTOBER OF 2020 BUT RE-INJURED IT TWICE AND JUST GOT OUT OF A CAM BOOT 2 WEEKS AGO. STANDING AND WALKING MAKE HER PAIN WORSE. DECREASED PAIN IN SITTING AND LYING. - Pain RLE Pain Intensity (Out of 10): 2 Pain Intensity Range: 7 Comment: 1st and 2nd digits with walking LLE Pain Intensity (Out of 10): 2 Pain Intensity Range: 7 Comment: ankle Whole Body Pain Intensity (Out of 10): 2 - Objective THIS PATIENT AMBULATES INDEP'LY INTO PT IN THANG REGULAR SHOES WITH DECREASED BRYAN BUT NO LOB. SHE HAS MILD SWELLING INFERIOR AND POSTERIOR TO THE L LATERAL MALLEOLUS, ANT ANKLE AND IN THE REGION OF THE ATFL. SHE ALSO HAS MILD TENDERNESS IN THESE REGIONS. FULL L ANKLE ROM BUT MILD C/O PAIN WITH ACTIVE INVERSION. L ANKLE STRENGTH 4/5 EXCEPT EVERSION 4-/5. MILD RIGHT PROX [place]X REGION OF GREAT TOE BUT NO SWELLING AND FULL PAINFREE ROM AND STRENGTH. MILD REDUCED R ANKLE DORSIFLEXION BUT DENIES PAIN. - Balance/Special Test Scores Lower Extremity Functional Score: 23 - Goals Goal 1:: DECREASE C/O R TOE AND L ANKLE PAIN Goal Time Frame: 6-8 Weeks Goal 2:: IMRPOVE PAINFREEE STANDING AND WALKING FUNCTION Goal Time Frame: 6-8 Weeks Goal 3:: INSTRUCT IN PROPHYLAXIS Goal Time Frame: 6-8 Weeks - Anticipated Interventions Patient/Client Instruction: Educate patient on: Condition, Plan of Care, Risk Factors For the Purpose of:: To improve self management Therapeutic Exercise to Include: Strength training, Balance training, Flexibilty training, Gait and locomotor training, Neuromotor development, In an aquatic setting, Active ROM For the Purpose of:: To decrease pain, To increase ROM, To improve muscle performance and motor function, To increase tolerance to activity /condition/position, To improve ability of physical actions for home/community/work/leisure, To improve gait and locomotor functions Thank you for the opportunity to evaluate your patient. For Medicare and Medicare HMO plans, please review the plan of care and approve it. It will need to be FAXED BACK to us at [phone] for Medicare purposes. For Medicare only, by signing this I certify the plan of care. Please let me know if there are questions or concerns regarding this plan of care. Physician Signature: Date :
--- NOTE | 2021-12-14 14:24 | HP.PTDCSUM ---
It has been my pleasure to treat ALANIS LUCAS referred by Dr. Ximena Israel, JAYCEE, with the diagnosis of ANKLE SPRAIN for a total of 7 visit(s). Discharge Date: Please see the following information for a summary of their discharge status. Subjective: PATIENT REPORTS HER L ANKLE AND HER RIGHT TOE ARE BETTER BUT SHE IS CONCERNED ABOUT SHAKING THAT SHE GETS IN HER RIGHT FOOT WHEN SHE POINTS HER TOES DOWN. SHE REPORTS SHE IS INDEP WITH A POOL PROGRAM AND FEELS READY TO CONTINUE HER EX'S IN THE WATER ON HER OWN NOW. PATIENT REPORTS SHE THINKS SHE HURT HER R SHLD LIFTING HER MOM AND HER SHLD STILL HURTS. STATES SHE WILL SEE HER PCP IF NECESSARY FOR IT. RLE Pain Intensity (Out of 10): 2 LLE Pain Intensity (Out of 10): 2 Whole Body Pain Intensity (Out of 10): 5 % Improvement: 85 Objective/Function: PATIENT WAS SEEN TODAY FOR RE-ASSESSMENT OF PROGRESS TOWARD THE SET PT GOALS AND THE NEED FOR FURTHER PHYSICAL THERAPY VS READINESS FOR DISCHARGE. ALL PT GOALS HAVE BEEN MET FOR HER FEET. SHE IS INDEP WITH A POOL EX PROGRAM AND APPROPRIATE FOR AND AGREEABLE TO DISCHARGE. UPON EXAM TODAY THANG FOOT AND ANKLE ROM AND STRENGTH IS WFL. TREMOR OBSERVED INTERMITTENTLY WITH RIGHT FOOT AND TOE PLANTAR FLEXION. PATIENT REPORTS THAT ONE DOCTOR TOLD HER IT IS MUSCULAR AND ONE TOLD HER IT IS COMING FROM HER LOW BACK. THIS PT EDUCATED PATIENT ON BENEFITS OF USE OF LUMBAR SUPPORT IN SITTING AND FREQUENT BREAKS FROM SITTING. PATIENT TOLERATED LUMBAR SUPPORT WELL IN CLINIC. Goal 1:: DECREASE C/O R TOE AND L ANKLE PAIN Goal Progress: Goal Met Goal 2:: IMRPOVE PAINFREEE STANDING AND WALKING FUNCTION Goal Progress: Goal Met Goal 3:: INSTRUCT IN PROPHYLAXIS Goal Progress: Goal Met Plan: D/C TO INDEP POOL PROGRAM. PATIENT HAS MEMBERSHIP AND IS AGREEABLE TO DISCHARGE. If there are questions or concerns regarding this patient's physical therapy, please feel free to call me at [phone]. Thank you for the referral of this patient. Sincerely, Charline Cruz, PT, Cert MDT Balance/Gait/Functional tests - Balance/Special Test Scores Lower Extremity Functional Score: 36
== END 2021-12-14 19:00 | disposition home or self-care (01) ==
LOC: PT 09:00
PROVIDERS: PCP Internal Medicine; Referring Provider Podiatrist; Visit Provider Podiatrist
DX: S93.402D Sprain of unspecified ligament of left ankle, subsequent encounter (principal); X58.XXXD Exposure to other specified factors, subsequent encounter; S92.401D Displaced unspecified fracture of right great toe, subsequent encounter for fracture with routine healing; M20.5X1 Other deformities of toe(s) (acquired), right foot
CPT/HCPCS: 97113; 97162; 97164

== ENCOUNTER → 2022-02-23 | Outpatient (CLI) | payer OTHER, SELFPAY ==
--- NOTE | 2022-02-23 12:35 | US_ITS ---
STUDY: ULTRASOUND OF THE FEMALE PELVIS - COMPLETE REASON FOR EXAM: Female, 51 years old. POSTMENOPAUSAL BLEEDING LMP: Patient is postmenopausal. TECHNIQUE: Transabdominal and Transvaginal TECHNICAL QUALITY: Adequate. COMPARISON: Comparison is made with prior study 06/13/2016. FINDINGS: The uterus is anteverted and is in a midline position. The uterus measures 5.2 cm x 3.4 cm x 2.8 cm. Normal uterine cervix. The endometrium measures 1.5 mm in thickness, and is hyperechoic. There is no demonstrated endometrial mass. There is a 2.4 cm x 2.6 x 2.3 cm fundal fibroid. Heterogeneous echotexture of the myometrium. I.U.D. - The patient does not have an I.U.D. The right ovary is non-visualized. The left ovary is visualized. The left ovary measures 1.5 cm x 1.6 x 1.1 cm. There is no left ovarian cyst or ovarian mass. There is no visualized left adnexal mass or complex lesion. There is normal arterial and normal venous vascularity. There is no fluid in the cul-de-sac. The pre void volume of the bladder was 22 ml. US/Transvaginal Non- IMPRESSION: Fibroid uterus. Heterogeneous echotexture of the myometrium. Electronically Signed: Pascual Vaughn MD at 15:25 EDT ,
--- NOTE | 2022-02-23 12:35 | US_ITS ---
STUDY: ULTRASOUND OF THE FEMALE PELVIS - COMPLETE REASON FOR EXAM: Female, 51 years old. POSTMENOPAUSAL BLEEDING LMP: Patient is postmenopausal. TECHNIQUE: Transabdominal and Transvaginal TECHNICAL QUALITY: Adequate. COMPARISON: Comparison is made with prior study 06/13/2016. FINDINGS: The uterus is anteverted and is in a midline position. The uterus measures 5.2 cm x 3.4 cm x 2.8 cm. Normal uterine cervix. The endometrium measures 1.5 mm in thickness, and is hyperechoic. There is no demonstrated endometrial mass. There is a 2.4 cm x 2.6 x 2.3 cm fundal fibroid. Heterogeneous echotexture of the myometrium. I.U.D. - The patient does not have an I.U.D. The right ovary is non-visualized. The left ovary is visualized. The left ovary measures 1.5 cm x 1.6 x 1.1 cm. There is no left ovarian cyst or ovarian mass. There is no visualized left adnexal mass or complex lesion. There is normal arterial and normal venous vascularity. There is no fluid in the cul-de-sac. The pre void volume of the bladder was 22 ml. US/Pelvic (Non ) IMPRESSION: Fibroid uterus. Heterogeneous echotexture of the myometrium. Electronically Signed: Pascual Vaughn MD at 15:25 EDT ,
--- NOTE | 2022-02-23 12:37 | BI_ITS ---
MAMMOGRAPHY - BILATERAL SCREENING REASON FOR EXAM: Female, 51 years old. Routine annual screening examination. PERTINENT HISTORY: Grandmother with breast cancer. Remote left excisional breast biopsy. TECHNIQUE: Digital bilateral breast shayna (3D mammographic acquisition) in the CC and MLO projections. 2-D mediolateral oblique (MLO) and craniocaudad (CC) views of both breasts were obtained. CAD: Full Field Digital Mammography with Computer Added Detection was performed. COMPARISON: Comparison is made with prior study dated 06/21/2020 and 06/19/2019. FINDINGS: Breast Composition: The breasts are heterogeneously dense, which may obscure small masses. There are no dominant masses or suspicious calcifications. Stable small benign-appearing bilateral axillary lymph nodes. No other significant abnormalities are identified. There has been no significant change since the prior study. BI/SCRN MAMM (CAD)W/SHAYNA BILAT IMPRESSION: Stable bilateral screening mammogram. Yearly follow-up mammogram recommended. (A) ASSESSMENT CATEGORY: BIRADS Category 2: Benign. A letter regarding these results will be sent to the patient by the facility within 30 days. Approximately 10% of breast cancers are not detected by mammography. A normal mammogram should not delay biopsy of a clinically suspicious abnormality. [id number] Electronically Signed: Pascual Vaughn MD at 14:14 EDT ,
== END | disposition home or self-care (01) ==
LOC: OPBI 12:30
PROVIDERS: PCP Internal Medicine; Visit Provider Obstetrics & Gynecology Gynecology
DX: Z12.31 Encounter for screening mammogram for malignant neoplasm of breast (principal)
CPT/HCPCS: 76830; 76856; 77063; 77067

== ENCOUNTER → 2022-02-28 | Outpatient (CLI) | payer OTHER, SELFPAY ==
[2022-02-28 15:17] LABS: Color, Urine Yellow (Yellow); Glucose, Dipstick Normal (Normal); Ketone-Dipstick Negative (Negative); Leukocyte Esterase-Dipstick Negative /ul (Negative); Nitrite-Dipstick Negative (Negative); Occult Blood-Urine Negative /ul (Negative); Protein-Dipstick Negative (Negative); Specific Gravity, Urine 1.005 (1.002-1.030); Urine Bilirubin Dipstick Negative (Negative); Urine Clarity Clear (Clear); Urine Urobilinogen Normal (Normal)
[2022-02-28 15:58] LABS: Estradiol 12.8 pg/mL; Follicle Stimulating Hormone 74.3 mIU/mL; Luteinizing Hormone 37.3 mIU/mL
== END | disposition home or self-care (01) ==
PROVIDERS: PCP Internal Medicine; Visit Provider Obstetrics & Gynecology Gynecology
DX: R32 Unspecified urinary incontinence (principal); N95.0 Postmenopausal bleeding
CPT/HCPCS: 36415; 81002; 82670; 83001; 83002

== ENCOUNTER → 2022-04-25 | Outpatient (CLI) | payer OTHER, SELFPAY ==
[2022-04-25 10:51] LABS: Absolute Lymphocyte Count 2.13 X10^3/uL (0.83-4.51); Absolute Neutrophil Count 6.1 X10^3/uL (2.0-7.7); Basophil# 0.06 X10^3/uL; Basophil% 0.6 % (0-1); Eosinophil# 0.11 X10^3/uL; Eosinophils% 1.2 % (0-5); Hematocrit 39.6 % (37-47); Hemoglobin 12.4 g/dL (12.0-15.0); Lymphocyte # 2.13 X10^3/ul (0.83-4.51); Mean Corp Hgb Conc 31.3 g/dL (32-36); Mean Corpuscular Hgb 28.9 pg (27.0-32.0); Mean Corpuscular Volume 92.3 fL (81-99); Monocyte# 0.79 X10^3/uL; Monocyte% 8.5 % (0-10); NRBC Flagged by Analyzer 0 % (0-5); Neutrophil # 6.05 X10^3/uL (2.7-7.7); Neutrophil % 65.5 % (47-70); Platelet Count 318 K/mm3 (150-450); RBC Distribution Width CV 14.6 % (11.6-14.6); RBC Distribution Width SD 48.9 fl (35.1-43.9); Red Blood Count 4.29 M/mm3 (4.2-5.4); White Blood Count 9.3 K/mm3 (4.4-11.0)
[2022-04-25 11:26] LABS: Vitamin B12 645 pg/mL (211-911)
[2022-04-25 11:33] LABS: Cholesterol 198 mg/dL (200); High Density Lipoprotein 66 mg/dL; Iron 44 ug/dL (50-170); Iron Binding Capacity,Total 423 ug/dL (250-450); Triglycerides 76 mg/dL; Very Low Density Lipoprotein 15 mg/dL (5-40)
[2022-05-01 18:31] LABS: VITAMIN B6 1.2 ug/L (3.4-65.2)
== END | disposition home or self-care (01) ==
LOC: LAB 09:40
PROVIDERS: PCP Internal Medicine; Referring Provider Internal Medicine; Visit Provider Internal Medicine
DX: E61.1 Iron deficiency (principal); E53.8 Deficiency of other specified B group vitamins
CPT/HCPCS: 36415; 80061; 82607; 83540; 83550; 84207; 85025

== ENCOUNTER → 2022-04-28 | Outpatient (CLI) | payer OTHER, SELFPAY ==
[2022-04-28 11:21] LABS: Absolute Lymphocyte Count 3.99 X10^3/uL (0.83-4.51); Absolute Neutrophil Count 6.9 X10^3/uL (2.0-7.7); Basophil# 0.05 X10^3/uL; Basophil% 0.4 % (0-1); Eosinophil# 0.08 X10^3/uL; Eosinophils% 0.7 % (0-5); Hematocrit 39.1 % (37-47); Hemoglobin 12.2 g/dL (12.0-15.0); Lymphocyte # 3.99 X10^3/ul (0.83-4.51); Lymphocyte % 32.8 % (19-41); Mean Corp Hgb Conc 31.2 g/dL (32-36); Mean Corpuscular Hgb 29.5 pg (27.0-32.0); Mean Corpuscular Volume 94.4 fL (81-99); Mean Platelet Vol. 9.7 fl (6.2-12.0); Monocyte# 0.92 X10^3/uL; Monocyte% 7.6 % (0-10); NRBC Flagged by Analyzer 0 % (0-5); Neutrophil % 56.5 % (47-70); Platelet Count 337 K/mm3 (150-450); RBC Distribution Width CV 14.5 % (11.6-14.6); Red Blood Count 4.14 M/mm3 (4.2-5.4); White Blood Count 12.2 K/mm3 (4.4-11.0)
[2022-04-28 11:31] LABS: Erythrocyte Sedimentation Rate 7 mm/hr (0-30)
[2022-04-28 16:58] LABS: ALB/GLOB Ratio 1.2 RATIO (0.9-2.4); AST(SGOT) 15 U/L (15-37); Alanine Aminotransfer ALT/SGPT 27 U/L (13-56); Albumin, Serum 3.6 g/dL (3.2-5.0); Alkaline Phosphatase 120 U/L (45-117); Anion Gap 5 (5-15); BUN 15 mg/dL (7-18); BUN/Creat Ratio 16.1 RATIO (10-20); Bilirubin, Direct 0.15 mg/dL (0.00-0.30); CRP < 2.90 mg/L (0.0-3.0); Calcium,Total 9.2 mg/dL (8.5-10.1); Chloride 106 mmol/L (98-107); Creatinine, Serum 0.93 mg/dL (0.55-1.02); EST Glomerular Filtration Rate 67 mL/min (>60); Est Glom Filt Rate - Afr Amer 81 mL/min (>60); Ferritin 12 ng/mL (8-252); Glucose 152 mg/dL (74-106); Iron 52 ug/dL (50-170); Iron Binding Capacity,Total 470 ug/dL (250-450); Magnesium 2.2 mg/dL (1.6-2.6); PERCENT IRON SATURATION 11.1 % (15.0-55.0); Potassium 3.9 mmol/L (3.5-5.1); Protein, Total 6.6 g/dL (6.4-8.2); Sodium Level 140 mmol/L (136-145)
[2022-04-30 08:36] LABS: Vitamin B12 519 pg/mL (211-911)
== END | disposition home or self-care (01) ==
LOC: LAB 10:22
PROVIDERS: PCP Internal Medicine; Referring Provider Internal Medicine; Visit Provider Internal Medicine
DX: D64.9 Anemia, unspecified (principal); M06.09 Rheumatoid arthritis without rheumatoid factor, multiple sites; E87.8 Other disorders of electrolyte and fluid balance, not elsewhere classified; Z79.899 Other long term (current) drug therapy
CPT/HCPCS: 36415; 80053; 82248; 82607; 82728; 82746; 83540; 83550; 83735; 85025; 85652; 86140

== ENCOUNTER → 2022-04-30 | Outpatient (CLI) | payer OTHER, SELFPAY ==
[2022-04-30 16:10] LABS: Microalbumin,Random Urine < 5.0 mg/L (NO RANGE EST.)
[2022-04-30 17:09] LABS: T4 Free Direct 1.12 ng/dL (0.76-1.46); Thyroid Stim Hormone (TSH) 6.96 uIU/mL (0.358-3.74)
== END | disposition home or self-care (01) ==
LOC: LABSPEC 14:07 → LAB 05-01 08:50
PROVIDERS: PCP Internal Medicine; Visit Provider Internal Medicine
DX: E03.9 Hypothyroidism, unspecified (principal); I10 Essential (primary) hypertension
CPT/HCPCS: 36415; 82043; 82570; 84439; 84443

== ENCOUNTER → 2022-11-20 | Outpatient (CLI) | payer OTHER, SELFPAY ==
--- NOTE | 2022-11-20 16:10 | CT_ITS ---
STUDY: CT RIGHT FOOT REASON FOR EXAM: Female, 52 years old. PAIN IN RT ANKLE AND JOINTS OF RT FOOT RADIATION DOSAGE (If Supplied By Facility): CTDIvol = ( 15.35 ) mGy, DLP = ( 361.44 ) mGycm TECHNIQUE: Thin section transaxial imaging of the foot was obtained, with sagittal and coronal reconstructed images. Individualized dose optimization techniques were used for this CT. COMPARISON: None. FINDINGS: Normal visualized distal tibia and fibula. Normal tibiotalar articulation and talar dome. Normal talus, navicular and cuboid tarsal bones. There is small plantar spur of the calcaneus. Normal subtalar, talonavicular and calcaneocuboid articulations. Normal navicular-cuneiform, cuneiform tarsal bones and intercuneiform articulations. Normal tarsometatarsal articulations . Normal metatarsi. There is severe joint space narrowing and moderate spurring of the metatarsophalangeal joint of the great toe. Normal tibial and fibular sesamoid bones. Normal interphalangeal joint of the great toe. Normal phalanges of the great toe. Normal second through fifth metatarsophalangeal joints. There is healed fracture of the second proximal phalanx. There is accessory navicular incorporated into the distal tibialis posterior. There is no acute fracture. CT/Extremity Lower without Contra IMPRESSION: Arthritic change at the first MTP joint. Electronically Signed: Cooper Landers MD at 19:54 EDT ,
== END | disposition home or self-care (01) ==
PROVIDERS: PCP Internal Medicine; Referring Provider Podiatrist; Visit Provider Podiatrist
DX: M25.571 Pain in right ankle and joints of right foot (principal)
CPT/HCPCS: 73700

== ENCOUNTER 2023-01-15 11:30 | Outpatient (RCR) | payer OTHER, SELFPAY ==
--- NOTE | 2023-01-08 14:01 | HP.PTEVAL_ITS ---
Patient's Visit Information Visit Information Visit Information: ALANIS LUCAS is a 52 year old F referred to Physical Therapy by Dr. 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 Date of Evaluation: 01/08/23 Physical Therapist: Charline Cruz PT, Cert MDT Visit Plan Frequency: 2x /Week Duration: 4-6 Weeks Plan: AQUATIC THERAPY FOR R ANKLE PAIN RELIEF, GAIT TRAINING, GENTLE FUNCTIONAL ROM AND STRENGTH TRAINING. NO LUNGES. TAKE MULTIPLE CO-MORBITITIES INTO CONSIDERATION INCLUDING FIBROMYALGIA AND Juvenile Arthritis. Advise on pro's/con's of water shoes. Progress toward indep pool program as tolerated. AVOID PAIN DURING AND WITHIN 24 HOURS AFTER EXERCISE. Subjective Subjective: DX'S: R ANKLE PAIN, SINUS TARSI SYNDROME AND STAGE III PTTD WITH SUBFIBULAR IMPINGEMENT. Work/Leisure: RETIRED Disability: YES Present symptoms: FRONT AND OUTSIDE OF RIGHT ANKLE PAIN. CALF FEELS WEAK. DENIES NUMBNESS OR TINGLING. Present since: ABOUT 2 MONTHS AGO Pain Scale: WORST 6/10, LEAST 0/10 Currently: 6/10 WALKING IN TO PT TODAY. Is it getting better, worse or staying the same: GETTING A LITTLE BETTER Commenced as a result of: NO APPARENT REASON - JUST WALKING Symptoms at onset: PAIN IN THE SAME PLACE Worse: WALKING Better: SITTING Disturbed sleep: NO Previous history/Previous treatment: R GREAT TOE FX MAR 2021 AND WAS IN A CAM BOOT UNTIL JUL 2021. Treatment this episode: REST, BOOT, INJECTION Gait: NO AD'S AND NO LONGER USING WALKING BOOT (STOPPED APPROX 12/24/22). HAD TO USE A W/C TO GO TO [facility]/VACATION 12/20/22. ALSO DID SOME WALKING IN BOOT ON VACATION. Unexplained weight loss: NO Imaging: X-RAYS AND CAT SCAN - HE DIDN'T SEE ANYTHING. PMH/Recent major surgery: HAVING DIFFICULTY CONTROLLING BLOOD SUGAR CURRENTLY DUE TO MEDICATION CHANGES FOR BIPOLAR DISORDER TEHREFORE IS GOING TO TRY A NEW MEDICINE FOR THAT. Juvenile Arthritis. Fibromyalgia. HTN. H/O L ANKLE SPRAIN OCTOBER OF 2020 WITH 2 RE-INJURIES AND IN CAM BOOT UNTIL APPROX SEPTEMBER 2021. CURRENTLY: WALKING IN REGULAR SHOE. HAVING NEW ORTHOTICS MOLDED NEXT WEEK. PATIENT REPORTS SHE REQUESTED TRYING AQUATIC PHYSICAL THERAPY AND DOCTOR AGREEABLE. Objective Objective: THIS PATIENT AMBUALTES INDEP'LY INTO PT WITHOUT ANY ASSISTIVE DEVICES AND WEARING REGULAR SHOE ON R FOOT WITH ORTHOTICS AND NO ANKLE BRACE. SHE HAS A MILD LIMP ON THE R LE. PATIENT DENIES TENDERNESS IN R FOOT AND ANKLE BUT THERE IS MILD SWELLING IN THE LATERAL TALOFIBULAR JT REGION. OBSERVATION: NO ECCYMOSIS. GENU VALGUM AND FLATFOOT DEFORMITY NOTED. ROM: R ANKLE DORSIFLEX - 4 DEG, PLANTAR FLEX AND INVERSION WFL, EVERSION 5 DEG. STRENGTH MID-RANGE: R ANKLE 4/5. EHL 4/5. GENTLE SQUEEZE TEST IS POSITIVE FOR REPRODUCTION OF PAIN IN THE DISTAL SYNDESMOSIS JUST ABOVE THE ANKLE JOINT. PATIENT TOLERATED ALL TESTING WELL TODAY AND DENIED INCREASED PAIN UPON DEPARTURE. Balance/Special Test Scores Lower Extremity Functional Score: 27 Goals Goal 1:: DECREASE C/O R ANKLE PAIN Goal Time Frame: 4-6 Weeks Goal 2:: IMPROVE PAINFREE STANDING AND WALKING FUNCTION Goal Time Frame: 4-6 Weeks Goal 3:: INSTRUCT IN PROPHYLAXIS Goal Time Frame: 4-6 Weeks Anticipated Interventions Patient/Client Instruction: Educate patient on: Condition, Plan of Care and Risk Factors For the Purpose of:: To improve self management Therapeutic Exercise to Include: Strength training, Flexibilty training, Gait and locomotor training and In an aquatic setting For the Purpose of:: To decrease pain, To increase ROM, To improve muscle performance and motor function, To increase tolerance to activity/condition/position, To improve ability of physical actions for home/community/work/leisure and To improve gait and locomotor functions Text: Thank you for the opportunity to evaluate your patient. For Medicare and Medicare HMO plans, please review the plan of care and approve it. It will need to be FAXED BACK to us at [phone] for Medicare purposes. For Medicare only, by signing this I certify the plan of care. Please let me know if there are questions or concerns regarding this plan of care. Physician Signature: Date:
--- NOTE | 2023-03-22 07:30 | HP.PT.NRP ---
Patient Information Patient Information: ALANIS LUCAS was seen in my office for initial evaluation on 01/08/23. The following Plan of Care was established for this patient: POC Established Initial Frequency: 2x /Week Initial Duration: 4-6 Weeks Anticipated Interventions Patient/Client Instruction: Educate patient on: Condition, Plan of Care and Risk Factors For the Purpose of:: To improve self management Therapeutic Exercise to Include: Strength training, Flexibilty training, Gait and locomotor training and In an aquatic setting For the Purpose of:: To decrease pain, To increase ROM, To improve muscle performance and motor function, To increase tolerance to activity/condition/position, To improve ability of physical actions for home/community/work/leisure and To improve gait and locomotor functions Last Seen Last Seen: This patient was last seen in our office 01/15/23. Pertinent comments regarding their Physical therapy will appear below: This patient has not returned to Physical Therapy and is appropriate to return to MD for further follow-up as needed. At this point I will be discontinuing this patient from physical therapy. I would be happy to see this patient again in the future if found appropriate by the physician. Thank you! Charline Cruz, PT, Cert MDT Balance/Gait/Functional tests Balance/Special Test Scores Lower Extremity Functional Score: 27
== END 2023-01-15 19:00 | disposition home or self-care (01) ==
LOC: PT 11:30
PROVIDERS: PCP Internal Medicine; Referring Provider Podiatrist; Visit Provider Podiatrist
DX: M25.571 Pain in right ankle and joints of right foot (principal)
CPT/HCPCS: 97113; 97162

== ENCOUNTER → 2023-02-09 | Outpatient (CLI) | payer OTHER, SELFPAY ==
--- NOTE | 2023-02-09 07:16 | MRI_ITS ---
EXAM: MR RIGHT LOWER EXTREMITY WITHOUT INTRAVENOUS CONTRAST, ANKLE CLINICAL INDICATION: LATERAL PAIN, FX TIB/FIB 3 MONS AGO TECHNIQUE: Multiplanar and multisequence MR images of the right ankle without intravenous contrast. COMPARISON: No relevant prior studies available. FINDINGS: LIGAMENTS: ANTERIOR TALOFIBULAR: Unremarkable. Intact. POSTERIOR TALOFIBULAR: Unremarkable. Intact. ANTERIOR TIBIOFIBULAR: Unremarkable. Intact. POSTERIOR TIBIOFIBULAR: Unremarkable. Intact. CALCANEOFIBULAR: Unremarkable. Intact. DELTOID: Moderate grade sprain injury involving the deep fibers of the deltoid ligamentous complex. SPRING: Unremarkable. Intact. LISFRANC: Unremarkable. Intact. TENDONS: ACHILLES: Unremarkable. Intact. FLEXOR: Unremarkable. Intact. EXTENSOR: Unremarkable. Intact. PERONEAL: Unremarkable. Intact. TIBIALIS ANTERIOR: Unremarkable. Intact. TIBIALIS POSTERIOR: Unremarkable. Intact. MUSCLES: Unremarkable. Normal bulk and signal. FLUID: Small to moderate size tibiotalar and subtalar joint effusion. SINUS TARSI: Sinus Tarsi is normal. TARSAL TUNNEL: Unremarkable. PLANTAR FASCIA: Unremarkable. Intact. CARTILAGE: Unremarkable. No osteochondral lesion. Articular cartilage intact. BONES/JOINTS: Healing fractures of the metaphysis of the distal radius and metaphysis of the distal ulna with associated bone marrow edema involving both lungs. Talar dome intact. No other concerning marrow signal alterations. OTHER SOFT TISSUES: Unremarkable. MRI/Lower Ext Joint Only (Routine) IMPRESSION: 1. Healing fractures of the distal tibia and fibula. 2. Moderate grade sprain injury involving the deep fibers of the deltoid ligamentous complex. 3. [id number] size tibiotalar and posterior subtalar joint effusions. Electronically Signed: Venkat Malloy MD at 21:17 EDT ,
== END | disposition home or self-care (01) ==
LOC: MRI 07:10
PROVIDERS: PCP Internal Medicine; Referring Provider Podiatrist; Visit Provider Podiatrist
DX: M25.571 Pain in right ankle and joints of right foot (principal)
CPT/HCPCS: 73721

== ENCOUNTER → 2023-03-21 | Outpatient (CLI) | payer OTHER, SELFPAY ==
--- NOTE | 2023-03-21 07:56 | BI_ITS ---
MAMMOGRAPHY - BILATERAL SCREENING REASON FOR EXAM: Female, 52 years old. Routine annual screening examination. PERTINENT HISTORY: Grandmother with breast cancer. Remote left excisional breast biopsy. TECHNIQUE: Digital bilateral breast shayna (3D mammographic acquisition) in the CC and MLO projections. 2-D mediolateral oblique (MLO) and craniocaudad (CC) views of both breasts were obtained. CAD: Full Field Digital Mammography with Computer Added Detection was performed. COMPARISON: Comparison is made with prior study February 23, 2022 and June 21, 2020. FINDINGS: Breast Composition: The breasts are heterogeneously dense, which may obscure small masses. There are no dominant masses or suspicious calcifications. No other significant abnormalities are identified. There has been no significant change since the prior study. BI/SCRN MAMM (CAD)W/SHAYNA BILAT IMPRESSION: Stable bilateral screening mammogram. Yearly follow-up mammogram recommended. (A) ASSESSMENT CATEGORY: BIRADS Category 1: Negative. A letter regarding these results will be sent to the patient by the facility within 30 days. Approximately 10% of breast cancers are not detected by mammography. A normal mammogram should not delay biopsy of a clinically suspicious abnormality. [id number] Electronically Signed: Pascual Vaughn MD at 9:37 EDT ,
== END | disposition home or self-care (01) ==
LOC: OPBI 07:55
PROVIDERS: PCP Internal Medicine; Referring Provider Obstetrics & Gynecology Gynecology; Visit Provider Obstetrics & Gynecology Gynecology
DX: Z12.31 Encounter for screening mammogram for malignant neoplasm of breast (principal)
CPT/HCPCS: 77063; 77067

== ENCOUNTER → 2023-12-11 | Outpatient (CLI) | payer OTHER, SELFPAY ==
--- NOTE | 2023-12-11 07:20 | CT_ITS ---
STUDY: CT CHEST WITHOUT CONTRAST REASON FOR EXAM: Female, 53 years old. SOB. History of rheumatoid arthritis. RADIATION DOSAGE (If Supplied By Facility): CTDIvol = ( 12.41 ) mGy, DLP = ( 418.54 ) mGycm TECHNIQUE: Transaxial imaging was performed without the administration of intravenous contrast material. Multiplanar coronal and sagittal images were reformatted. Individualized dose optimization techniques were used for this CT. COMPARISON: No relevant priors. FINDINGS: CHEST Small benign-appearing bilateral axillary lymph nodes. Minimal linear scarring is seen in the posterior medial segment of the right lower lobe. There is no demonstrated pleural abnormality. Normal heart and pericardium. No significant coronary artery calcification is seen. Normal mediastinum. Normal hilar regions. Normal unenhanced pulmonary arteries. Normal aorta arch and descending thoracic aorta. There are multi-level degenerative changes of the thoracic spine. Increased kyphosis. The patient is status post cholecystectomy. There is a 3.5 cm x 2.3 cm cyst in the anterior midportion of the left kidney. CT/Chest without Contrast IMPRESSION: Minimal increased linear markings in keeping with scarring present in the posterior medial segment of the right lower lobe. Electronically Signed: Pascual Vaughn MD at 8:29 EDT ,
== END | disposition home or self-care (01) ==
PROVIDERS: PCP Internal Medicine; Referring Provider Internal Medicine Pulmonary Disease; Visit Provider Internal Medicine Pulmonary Disease
DX: R06.02 Shortness of breath (principal); M06.9 Rheumatoid arthritis, unspecified; Z79.899 Other long term (current) drug therapy
CPT/HCPCS: 71250

== ENCOUNTER → 2024-05-06 | Outpatient (CLI) | payer OTHER, SELFPAY | END | disposition home or self-care (01) | LOC: OPBI 08:19 | PROVIDERS: PCP Internal Medicine; Referring Provider Obstetrics & Gynecology Gynecology; Visit Provider Obstetrics & Gynecology Gynecology | DX: Z12.31 Encounter for screening mammogram for malignant neoplasm of breast (principal) | CPT/HCPCS: 77063; 77067 ==

== ENCOUNTER → 2025-06-08 | Outpatient (CLI) | payer OTHER, SELFPAY ==
--- NOTE | 2025-06-08 08:05 | BI_ITS ---
EXAM: SCRN MAMM (CAD)W/SHAYNA BILAT DATE: 06/08/2025 CLINICAL HISTORY: F, Age 55 y/o , SCREENING Grandmother with breast cancer. Remote left excisional breast biopsy. TECHNIQUE: Procedure Code: [id number] Modality: MG Procedure: SCRN MAMM (CAD)W/SHAYNA BILAT COMPARISON: Prior exam(s) dated May 06, 2024.. FINDINGS: TISSUE DENSITY: There are scattered areas of fibroglandular density. Bilateral Breast Mammographic Findings: No significant masses, calcifications or other abnormalities are identified. No suspicious masses, areas of developing architectural distortion, or suspicious calcifications. There has been no significant interval change. BI/SCRN MAMM (CAD)W/SHAYNA BILAT IMPRESSION: Stable bilateral screening mammogram. OVERALL FINAL ASSESSMENT BI-RADS 1: NEGATIVE. RECOMMENDATION: Routine annual follow-up in 1 Year Additional Recommendation none A letter with findings and recommendations will be mailed to the patient. Reading Location: [place] [id number]
== END | disposition home or self-care (01) ==
LOC: OPBI 08:04
PROVIDERS: PCP Internal Medicine; Referring Provider Obstetrics & Gynecology; Visit Provider Obstetrics & Gynecology
DX: Z12.31 Encounter for screening mammogram for malignant neoplasm of breast (principal)
CPT/HCPCS: 77063; 77067